=== PATIENT | female | born 2000 | race Hispanic/Latino ===

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

== ENCOUNTER 2023-03-01 00:29 | Observation (INO) | payer MEDICAID ==
[~2023-03-01] VITALS: Ht 154.9 cm; Wt 76.6 kg
[2023-03-01 00:31] VITALS: BP 106/66
[2023-03-01 01:12] LABS: APPEARANCE,URINE CLEAR (CLEAR); BILIRUBIN,URINE NEGATIVE (NEGATIVE); COLOR,URINE LIGHT-YELLOW (YELLOW); GLUCOSE, URINE (UA) NEGATIVE (NEGATIVE); KETONES,URINE NEGATIVE (NEGATIVE); LEUKOCYTE ESTERASE ,URINE 250 Leu/uL (NEGATIVE); NITRATE,URINE NEGATIVE (NEGATIVE); OCCULT BLOOD,URINE NEGATIVE (NEGATIVE); PH,URINE 6.5 (5.0-8.0); PROTEIN,URINE NEGATIVE (NEGATIVE); UROBILINOGEN,URINE 0.2 mg/dL (0.2-1.0)
[2023-03-01 01:19] LABS: AMPHET/METH SCREEN,URINE NEGATIVE (NEGATIVE); BARBITURATE SCREEN, URINE NEGATIVE (NEGATIVE); BENZODIAZEPINES SCREEN,URINE NEGATIVE (NEGATIVE); CANNABINOID SCREEN,URINE NEGATIVE (NEGATIVE); COCAINE SCREEN,URINE NEGATIVE (NEGATIVE); OPIATE SCREEN,URINE NEGATIVE (NEGATIVE); PHENCYCLIDINE SCREEN,URINE NEGATIVE (NEGATIVE)
[2023-03-01 01:25] LABS: MUCUS,URINE RARE LPF (None Seen); SQUAMOUS EPITHELIAL CELL,UR RARE /HPF (0-2); WBC,URINE 26-50 /HPF (0-1)
[2023-03-01] MEDS ORDERED: ACETAMINOPHEN 500 MG TABLET PO ONE (01:30)
[2023-03-01] MEDS ORDERED: LACTATED RINGERS 1000ML IV SCH (01:30)
== END 2023-03-01 02:55 | disposition home or self-care (01) ==
LOC: EDH 00:29 → LDH 00:30
PROVIDERS: ADMIT Obstetrics & Gynecology; ATTEND Obstetrics & Gynecology
DX: O26.892 Other specified pregnancy related conditions, second trimester (principal); R10.30 Lower abdominal pain, unspecified; Z3A.23 23 weeks gestation of pregnancy
CPT/HCPCS: 96360; 80305; 87088; 81001; G0378 ×2; G0379; J7120

== ENCOUNTER 2023-05-23 02:37 | Observation (INO) | payer MEDICAID ==
[~2023-05-23] VITALS: Ht 154.9 cm; Wt 81.6 kg
[2023-05-23 02:38] VITALS: BP 117/62; PULSE 76; RESP 20
[2023-05-23] MEDS: LACTATED RINGERS 1000ML IV SCH ×2 (03:10→03:42)
[2023-05-23 03:19] LABS: APPEARANCE,URINE CLEAR (CLEAR); BILIRUBIN,URINE NEGATIVE (NEGATIVE); COLOR,URINE LIGHT-YELLOW (YELLOW); GLUCOSE, URINE (UA) NEGATIVE (NEGATIVE); KETONES,URINE NEGATIVE (NEGATIVE); LEUKOCYTE ESTERASE ,URINE 500 Leu/uL (NEGATIVE); NITRATE,URINE NEGATIVE (NEGATIVE); OCCULT BLOOD,URINE NEGATIVE (NEGATIVE); PROTEIN,URINE NEGATIVE (NEGATIVE); UROBILINOGEN,URINE 0.2 mg/dL (0.2-1.0)
[2023-05-23 03:22] LABS: ADD UA MICROSCOPIC YES
[2023-05-23 03:23] LABS: BACTERIA,URINE RARE /HPF (None Seen); MUCUS,URINE RARE LPF (None Seen); SQUAMOUS EPITHELIAL CELL,UR RARE /HPF (0-2); WBC,URINE 26-50 /HPF (0-1)
== END 2023-05-23 04:30 | disposition home or self-care (01) ==
LOC: EDH 02:37 → LDH 02:38
PROVIDERS: ADMIT Obstetrics & Gynecology; ATTEND Obstetrics & Gynecology
DX: O62.9 Abnormality of forces of labor, unspecified (principal); Z3A.35 35 weeks gestation of pregnancy
CPT/HCPCS: 59025; 96360; 96361; 87088; 81001; G0378 ×2; G0379; J7120

== ENCOUNTER 2023-06-05 03:12 | Emergency (ER) | payer MEDICAID ==
[~2023-06-05] VITALS: Ht 154.9 cm; Wt 79.8 kg
[~2023-06-05 03:12] MED LIST: IBUP-2077 PO; PREN-196 PO
[2023-06-05] MEDS ORDERED: METOCLOPRAMIDE 10 MG/2 ML VIAL IVP ONE (04:00)
[2023-06-05] MEDS ORDERED: KETOROLAC 30MG VIAL (30MG/ML) IVP ONE (04:00)
[2023-06-05] MEDS ORDERED: DiphenhydrAMINE HCL 50 MG/ML VIAL IV ONE (04:00)
[2023-06-05] MEDS ORDERED: IBUP-1493 PO (06:40)
[2023-06-05 06:59] VITALS: BP 111/58; PULSE 76; RESP 18; O2SAT 97
== END 2023-06-05 07:06 | disposition home or self-care (01) ==
LOC: EDH 03:12
DX: G43.909 Migraine, unspecified, not intractable, without status migrainosus (principal); Z88.0 Allergy status to penicillin
CPT/HCPCS: 99285; 96374; 70450; 96375; J1200; J1885; J2765

== ENCOUNTER 2024-05-20 10:01 | Emergency (ER) | payer MEDICAID ==
[~2024-05-20] VITALS: Ht 154.9 cm; Wt 52.6 kg
[~2024-05-20 10:01] MED LIST changes: +IBUP-1493 PO
[2024-05-20 11:15] LABS: BASOPHILS # (AUTO) 0.02 K/uL (0.00-0.20); BASOPHILS % (AUTO) 0.3 % (0.0-5.0); EOSINOPHILS # (AUTO) 0.04 K/uL (0.00-0.70); EOSINOPHILS % (AUTO) 0.5 % (0.0-8.0); HEMATOCRIT 34.9 % (36-48); IMMATURE GRANULOCYTE ABSOLUTE 0.01 K/uL (0-1); LYMPHOCYTES # (AUTO) 2.7 K/uL (1.0-4.8); LYMPHOCYTES % (AUTO) 34.7 % (21.0-51.0); MEAN CORPUSCULAR HEMOGLOBIN 26.7 pg (27.0-33.0); MONOCYTES # (AUTO) 0.6 K/uL (0.1-1.0); MONOCYTES % (AUTO) 7.9 % (3.0-13.0); NEUTROPHILS # (AUTO) 4.4 K/uL (1.8-7.7); NEUTROPHILS % (AUTO) 56.5 % (40.0-77.0); PLATELET COUNT (AUTO) 311 K/uL (130-400); RED BLOOD CELL COUNT(AUTO) 4.31 MIL/uL (4.00-5.50); RED CELL DISTRIBUTION WIDTH 13.9 % (11.0-15.5); WHITE BLOOD COUNT (AUTO) 7.9 K/uL (4.8-10.8)
[2024-05-20 11:19] LABS: CREATININE 0.6 mg/dL (0.5-1.0); POTASSIUM 3.6 mmol/L (3.5-5.1)
[2024-05-20 12:58] LABS: APPEARANCE,URINE TURBID (CLEAR); BILIRUBIN,URINE NEGATIVE (NEGATIVE); COLOR,URINE RED (YELLOW); GLUCOSE, URINE (UA) NEGATIVE (NEGATIVE); KETONES,URINE NEGATIVE (NEGATIVE); LEUKOCYTE ESTERASE ,URINE NEGATIVE Leu/uL (NEGATIVE); NITRATE,URINE NEGATIVE (NEGATIVE); OCCULT BLOOD,URINE LARGE (NEGATIVE); PROTEIN,URINE 30 mg/dL (NEGATIVE); UROBILINOGEN,URINE 0.2 mg/dL (0.2-1.0)
[2024-05-20 13:02] LABS: ADD UA MICROSCOPIC YES
[2024-05-20 13:10] LABS: BACTERIA,URINE Rare /HPF (None Seen); RBC,URINE TNTC /HPF (0-1)
[2024-05-20 13:11] VITALS: BP 118/75; PULSE 76; RESP 16; O2SAT 99
[2024-05-20 13:11] LABS: MUCUS,URINE Few LPF (None Seen); SQUAMOUS EPITHELIAL CELL,UR Rare /HPF (0-2)
== END 2024-05-20 13:13 | disposition home or self-care (01) ==
LOC: EDH 10:01
DX: O20.0 Threatened abortion (principal); O26.891 Other specified pregnancy related conditions, first trimester; R10.2 Pelvic and perineal pain; J45.909 Unspecified asthma, uncomplicated; Z3A.08 8 weeks gestation of pregnancy
CPT/HCPCS: 36415; 76801; 80048; 81001; 84702; 85025; 87086

== ENCOUNTER 2024-05-21 20:56 | Emergency (ER) | payer MEDICAID ==
[~2024-05-21] VITALS: Ht 154.9 cm; Wt 72.6 kg
[2024-05-21 22:21] LABS: BASOPHILS # (AUTO) 0.02 K/uL (0.00-0.20); BASOPHILS % (AUTO) 0.3 % (0.0-5.0); EOSINOPHILS # (AUTO) 0.06 K/uL (0.00-0.70); EOSINOPHILS % (AUTO) 0.8 % (0.0-8.0); HEMATOCRIT 34.6 % (36-48); IMMATURE GRANULOCYTE ABSOLUTE 0.02 K/uL (0-1); LYMPHOCYTES % (AUTO) 40.4 % (21.0-51.0); MEAN CORPUSCULAR HGB CONC 33.2 g/dL (32.0-36.0); MEAN CORPUSCULAR VOLUME 81.2 fL (79-99); MONOCYTES # (AUTO) 0.5 K/uL (0.1-1.0); MONOCYTES % (AUTO) 6.7 % (3.0-13.0); NEUTROPHILS # (AUTO) 3.8 K/uL (1.8-7.7); NEUTROPHILS % (AUTO) 51.5 % (40.0-77.0); PLATELET COUNT (AUTO) 323 K/uL (130-400); RED BLOOD CELL COUNT(AUTO) 4.26 MIL/uL (4.00-5.50); RED CELL DISTRIBUTION WIDTH 14.1 % (11.0-15.5); WHITE BLOOD COUNT (AUTO) 7.4 K/uL (4.8-10.8)
[2024-05-21 22:35] LABS: APPEARANCE,URINE CLEAR (CLEAR); BILIRUBIN,URINE NEGATIVE (NEGATIVE); COLOR,URINE COLORLESS (YELLOW); GLUCOSE, URINE (UA) NEGATIVE (NEGATIVE); KETONES,URINE NEGATIVE (NEGATIVE); LEUKOCYTE ESTERASE ,URINE NEGATIVE Leu/uL (NEGATIVE); NITRATE,URINE NEGATIVE (NEGATIVE); OCCULT BLOOD,URINE MODERATE (NEGATIVE); PH,URINE 7.5 (5.0-8.0); PROTEIN,URINE NEGATIVE (NEGATIVE); UROBILINOGEN,URINE 0.2 mg/dL (0.2-1.0)
[2024-05-21 22:57] LABS: ADD UA MICROSCOPIC YES
[2024-05-21 22:58] LABS: BACTERIA,URINE FEW /HPF (None Seen); MUCUS,URINE RARE LPF (None Seen); RBC,URINE 51-100 /HPF (0-1); SQUAMOUS EPITHELIAL CELL,UR RARE /HPF (0-2)
[2024-05-21 23:11] LABS: ALBUMIN 3.6 g/dL (3.5-5.0); BILIRUBIN,TOTAL 0.2 mg/dL (0.2-1.0); CREATININE 0.7 mg/dL (0.5-1.0); POTASSIUM 3.9 mmol/L (3.5-5.1); TOTAL PROTEIN, SERUM 7.3 g/dL (6.0-8.3)
[2024-05-21 23:55] VITALS: BP 102/55; PULSE 72; RESP 18; O2SAT 98
== END 2024-05-21 23:55 | disposition home or self-care (01) ==
LOC: EDH 20:56
DX: O03.9 Complete or unspecified spontaneous abortion without complication (principal); O26.891 Other specified pregnancy related conditions, first trimester; R10.2 Pelvic and perineal pain; F41.9 Anxiety disorder, unspecified; J45.909 Unspecified asthma, uncomplicated; F32.A Depression, unspecified; Z88.0 Allergy status to penicillin; Z79.899 Other long term (current) drug therapy
CPT/HCPCS: 36415; 76801; 80053; 81001; 84702; 85025

== ENCOUNTER 2025-01-02 00:15 | Emergency (ER) | payer MEDICAID ==
[~2025-01-02] VITALS: Ht 154.9 cm; Wt 78.5 kg
[2025-01-02 00:45] LABS: APPEARANCE,URINE CLEAR (CLEAR); BILIRUBIN,URINE NEGATIVE (NEGATIVE); COLOR,URINE YELLOW (YELLOW); GLUCOSE, URINE (UA) NEGATIVE (NEGATIVE); KETONES,URINE 20 mg/dL (NEGATIVE); LEUKOCYTE ESTERASE ,URINE 25 Leu/uL (NEGATIVE); NITRATE,URINE NEGATIVE (NEGATIVE); OCCULT BLOOD,URINE NEGATIVE (NEGATIVE); PH,URINE 6.5 (5.0-8.0); PROTEIN,URINE 10 mg/dL (NEGATIVE); UROBILINOGEN,URINE 0.2 mg/dL (0.2-1.0)
[2025-01-02 00:46] LABS: ADD UA MICROSCOPIC YES
[2025-01-02 00:48] LABS: BACTERIA,URINE RARE /HPF (None Seen); MUCUS,URINE RARE LPF (None Seen); SQUAMOUS EPITHELIAL CELL,UR FEW /HPF (0-2)
[2025-01-02 00:58] LABS: BASOPHILS # (AUTO) 0.02 K/uL (0.00-0.20); BASOPHILS % (AUTO) 0.2 % (0.0-5.0); EOSINOPHILS # (AUTO) 0.01 K/uL (0.00-0.70); EOSINOPHILS % (AUTO) 0.1 % (0.0-8.0); HEMATOCRIT 34.8 % (36-48); IMMATURE GRANULOCYTE ABSOLUTE 0.02 K/uL (0-1); LYMPHOCYTES # (AUTO) 0.7 K/uL (1.0-4.8); LYMPHOCYTES % (AUTO) 9.1 % (21.0-51.0); MEAN CORPUSCULAR HEMOGLOBIN 27.5 pg (27.0-33.0); MEAN CORPUSCULAR HGB CONC 33.6 g/dL (32.0-36.0); MEAN CORPUSCULAR VOLUME 81.7 fL (79-99); MONOCYTES # (AUTO) 0.9 K/uL (0.1-1.0); MONOCYTES % (AUTO) 10.8 % (3.0-13.0); NEUTROPHILS # (AUTO) 6.4 K/uL (1.8-7.7); NEUTROPHILS % (AUTO) 79.6 % (40.0-77.0); PLATELET COUNT (AUTO) 236 K/uL (130-400); RED BLOOD CELL COUNT(AUTO) 4.26 MIL/uL (4.00-5.50); RED CELL DISTRIBUTION WIDTH 14.3 % (11.0-15.5)
[2025-01-02 01:18] LABS: CREATININE 0.8 mg/dL (0.5-1.0); POTASSIUM 3.3 mmol/L (3.5-5.1)
[2025-01-02 01:23] LABS: SARS-CoV-2, RNA, NAAT NEGATIVE SARS CoV-2 (NEGATIVE)
[2025-01-02] MEDS: acetaMINOPHEN 500 MG TABLET PO ONE (01:23)
[2025-01-02] MEDS: 0.9%NACL 1000ML 1,434 ML IV ONE (01:23)
[2025-01-02 01:24] LABS: RAPID GROUP A STREP negative (NEGATIVE)
[2025-01-02] MEDS: acetaMINOPHEN 500 MG TABLET ONE (01:24)
[2025-01-02] MEDS: FENTanyl CITRate PF 50 MCG/1 ML 2ML VIAL IVP ONE (01:30)
[2025-01-02 01:31] LABS: INFLUENZA TYPE B Negative For Type B (NEGATIVE)
--- NOTE | 2025-01-02 01:33 | ERN ---
General Chief Complaint: Abdominal Pain Stated Complaint: C/O LOWER ABD PAIN W/BACK PAIN; 13 WKS Time Seen by MD: 00:33 Source: patient History of Present Illness Initial Comments Patient is a 24 year female 14 weeks who had bilateral lower abdominal pain and was seen at an outside hospital earlier today where she was given a diagnosis of a UTI. She left because the IV was not functioning she could not get fluid and she does not know if she received any antibiotics. She comes here tachycardic warm with worsening bilateral lower abdominal pain. Resting she states that she did not experience any burning itching when she urinates and her symptoms are not which she associates with a urinary tract infection. Sepsis alert was called on the patient Timing/Duration: 24 hours Severity: severe Allergies: Coded Allergies: Penicillins (Unverified Allergy, Unknown, 03/01/23) Home Meds Active Scripts Ibuprofen (Motrin/Advil) 800 Mg Tab, 800 MG PO TID, #30 TAB Prov:CARLOS LOUIS MD 06/05/23 Reported Medications Ibuprofen (Ibuprofen 800 mg Tab) 800 Mg Tab, 800 MG PO Q8H PRN for PAIN, #30 TAB 06/03/23 Vit No.124/Iron/FA ( Vitamin Tablet) 1 Each Tablet, 1 EACH PO DAILY, TAB 05/28/23 Past Medical History Past Medical History: Asthma Past Surgical History: Unknown Surgical History Other: LT OVARIAN CYST Family History Family History: Negative Social History Social History: Negative, Lives with family Female( History) LMP: Sep 27, 2024 : 4 Para: 1 Aborts: 2 ROS Dictation Patient states that she does not have any upper respiratory tract infection symptoms today or over the prior several days she has no nausea or vomiting no burning on urination no chest pain no shortness of breath moves all extremities able to ambulate no visual changes no mental status changes Constitutional: (+) fever, (+) malaise, (+) weakness, (+) other documentation IVF Sepsis Management IVF Sepsis Management BMI >30kg/m2?: Yes IVF calculated by IBW?: No Results Laboratory and Microbiology Lab and Micro Result Laboratory Tests Test 01/02/25 00:32 01/02/25 00:45 Urine Color YELLOW (YELLOW) Urine Appearance CLEAR (CLEAR) Urine pH 6.5 (5.0-8.0) Urine Specific [place] 1.029 (1.001-1.031) Urine Protein 10 mg/dL (NEGATIVE) H Urine Glucose (UA) NEGATIVE mg/dL (NEGATIVE) Urine Ketones 20 mg/dL (NEGATIVE) H Urine Occult Blood NEGATIVE (NEGATIVE) Urine Nitrate NEGATIVE (NEGATIVE) Urine Bilirubin NEGATIVE mg/dL (NEGATIVE) Urine Urobilinogen 0.2 mg/dL (0.2-1.0) Urine Leukocyte Esterase 25 Eric/uL (NEGATIVE) H Urine RBC 2-5 /HPF (0-1) H Urine WBC 2-5 /HPF (0-1) H Urine Squamous Epithelial Cells FEW /HPF (0-2) Urine Bacteria RARE /HPF (None Seen) White Blood Count 8.0 K/uL (4.8-10.8) Red Blood Count 4.26 MIL/uL (4.00-5.50) Hemoglobin 11.7 g/dL (12.0-16.0) L Hematocrit 34.8 % (36-48) L Mean Corpuscular Volume 81.7 fL (79-99) Mean Corpuscular Hemoglobin 27.5 pg (27.0-33.0) Mean Corpuscular Hemoglobin Concent 33.6 g/dL (32.0-36.0) Red Cell Distribution Width 14.3 % (11.0-15.5) Platelet Count 236 K/uL (130-400) Mean Platelet Volume 10.8 fL (7.5-10.5) H Immature Granulocyte % (Auto) 0.2 % (0-1) Neutrophils (%) (Auto) 79.6 % (40.0-77.0) H Lymphocytes (%) (Auto) 9.1 % (21.0-51.0) L Monocytes (%) (Auto) 10.8 % (3.0-13.0) Eosinophils (%) (Auto) 0.1 % (0.0-8.0) Basophils (%) (Auto) 0.2 % (0.0-5.0) Neutrophils # (Auto) 6.4 K/uL (1.8-7.7) Lymphocytes # (Auto) 0.7 K/uL (1.0-4.8) L Monocytes # (Auto) 0.9 K/uL (0.1-1.0) Eosinophils # (Auto) 0.01 K/uL (0.00-0.70) Basophils # (Auto) 0.02 K/uL (0.00-0.20) Absolute Immature Granulocyte (auto 0.02 K/uL (0-1) Nucleated Red Blood Cells 0.0 % (0.0-0.19) White Cell Morphology Comment CONSISTENT W/DIFF Sodium Level 135 mmol/L (136-145) L Potassium Level 3.3 mmol/L (3.5-5.1) L Chloride Level 100 mmol/L (101-111) L Carbon Dioxide Level 24 mmol/L (21-32) Blood Urea Nitrogen 5 mg/dL (7-18) L Creatinine 0.8 mg/dL (0.5-1.0) Glomerular Filtration Rate Calc 107 mL/min (>90) Random Glucose 137 mg/dL (70-105) H Lactic Acid Level 1.8 mmol/L (0.8-2.5) Total Calcium 8.8 mg/dL (8.5-10.1) Influenza Type A Antigen Positive For Type A Influenza Type B Antigen Negative For Type B SARS-CoV-2, RNA, NAAT NEGATIVE SARS CoV-2 Group A Streptococcus Rapid negative (NEGATIVE) MDM Despite patient's statement that she does not experience burning or itching well urinating, the most likely cause is a urinary tract infection. We will start with the sepsis protocol UA, urine culture, fluids, usual labs but will leave out the CK in the troponin. We will give a single dose of levofloxacin as pt is PCN allergic with swelling as the reaction. Other considerations could be ectopic with bleeding, maternal sepsis, lack of CVA tenderness suggests patient does not have pyelonephrosis, patient could also have chorioamnionitis-for which we will order a vaginal culture. The patient has a normal white blood cell count and her chemistry panel is normal. The urine did have some esterase activity but was nitrite negative and there were ketones present in it, suggesting dehydration. He transvaginal ultrasound shows a viable intrauterine with an estimated gestational age of about 13 weeks. Patient feels much better after the fluid boluses and has no abdominal pain and would like to go home. ED Course Orders Procedure Category Date Status Time Iv Insertion CPOE 01/02/25 Transmitted 00:33 Pulse Ox(Continuous) RT 01/02/25 Transmitted 00:33 Vital Signs Per CPOE 01/02/25 Transmitted Routine 00:33 12 Lead Ekg Tracing- EKG 01/02/25 Logged Technical 00:33 Cbc With Differential LAB 01/02/25 Complete 00:33 Blood Cult STEVIE 01/02/25 In Process 00:33 Urinalysis Profile LAB 01/02/25 Complete 00:33 Culture Urine STEVIE 01/02/25 In Process 00:33 Lactic Acid LAB 01/02/25 Complete 00:33 Basic Metabolic Panel LAB 01/02/25 Complete 00:33 Covid Rna Naat LAB 01/02/25 Complete 00:42 Influenza Type A & B, LAB 01/02/25 Complete Rapid 00:42 Rapid (Group A Strep) LAB 01/02/25 Complete 00:42 Acetaminophen 500mg PHA 01/02/25 Complete Tab (Tylenol 500mg T 01:30 Acetaminophen 500mg PHA 01/02/25 Complete Tab (Tylenol 500mg T 01:08 0.9%Nacl 1000ml (Ns PHA 01/02/25 In Process 1000ml) 01:30 Levofloxacin 750 PHA 01/02/25 In Process Mg/D5w 150 Ml 01:30 Fentanyl Citrate Pf PHA 01/02/25 Complete 0.05 Mg/Ml (Fentanyl 01:30 Us Ob <14 Weeks US 01/02/25 Taken 01:38 Current Medications Medications (Trade) Dose Ordered Sig/Wil Route PRN Reason Start Time Stop Time Status Last Admin Dose Admin Acetaminophen (TYLenol 500MG TAB) 500 mg STK-MED ONCE .ROUTE 01/02/25 01:08 01/02/25 01:08 DC Acetaminophen (TYLenol 500MG TAB) 1,000 mg ONCE ONCE PO 01/02/25 01:30 01/02/25 01:31 DC 01/02/25 01:23 Fentanyl Citrate (FENTanyl CITRate PF 50 MCG/ 1 ML 2ML VIAL) 100 mcg ONCE ONCE IVP 01/02/25 01:30 01/02/25 01:39 DC Levofloxacin/ Dextrose (LEvaquIN 750 MG/ D5W 150 ML) 750 mg Q24H IV 01/02/25 01:30 01/12/25 01:29 01/02/25 02:27 Sodium Chloride 1,434 ml @ 478 mls/hr ONCE ONCE IV 01/02/25 01:30 01/02/25 04:29 01/02/25 01:23 Vital Signs Date Time Temp Pulse Resp B/P (MAP) Pulse Ox O2 Delivery O2 Flow Rate FiO2 01/02/25 03:11 100.6 110 16 106/59 98 Room Air* 0 21 01/02/25 01:35 102.6 135 18 99/54 98 Room Air* 0 21 01/02/25 01:23 103.5 01/02/25 00:35 103.5 144 20 90/53 97 Room Air* 0 01/02/25 00:16 103.6 142 20 110/58 98 Room Air DX & DISP Disposition: Discharge Departure Impression: Primary Impression: Dehydration Additional Impression: 13 weeks gestation of Condition: Stable Referrals: NONE (PCP) TONNY VOGT MD Jan 02, 2025 01:33
[2025-01-02 01:36] LABS: WBC MORPHOLOGY CONSISTENT W/DIFF
[2025-01-02 01:57] LABS: INFLUENZA TYPE A Positive For Type A (NEGATIVE)
[2025-01-02] MEDS: levoFLOXacin 750 MG/D5W 150ML BAG IV SCH (02:27)
[2025-01-02 04:51] VITALS: BP 118/58; PULSE 99; RESP 16; TEMP 99.8; O2SAT 98
--- NOTE | 2025-01-02 07:36 | EKG ---
[facility] Test Date: 2025-01-02 Test Time: 01:00:03 Pat Name: JESSENIA MCKEON Department: [facility] Room: Gender: F Certified Midwife: [id number] : 2000 Requested By: TONNY VOGT Order Number: [id number] Reading MD: Maximus Starkey Measurements Intervals [place] Rate: 125 P: 66 CA: 164 QRS: 23 QRSD: 93 T: 25 QT: 284 QTc: 410 Interpretive Statements Sinus tachycardia Low voltage, precordial leads Nonspecific T abnormalities, anterior leads No previous ECG available for comparison Electronically Signed On 01-03-2025 14:46:16 CDT by Maximus Starkey Please click the below link to view image of tracing.
--- NOTE | 2025-01-02 10:36 | HMCIMG ---
ULTRASOUND OF THE PELVIS ULTRASOUND ABD VASCULAR LIMITED INDICATION: Pelvic pain COMPARISONS: None TECHNIQUE: Transabdominal real-time sonographic images were acquired earlier, and subsequently made available for review. FINDINGS: The uterus measures 14.9 x 6.0 x 11.7 cm. The uterus is normal in echotexture and contour. Single live intrauterine gestation corresponds to sonographic gestational age of 13 weeks 0 days based on crown-rump length of 6.9 cm. No abnormal subchorionic hypoechoic area demonstrated. heart rate = 167 BPM. The right ovary was not well-demonstrated. The left ovary measures 3.3 x 1.6 x 2.4 cm. The left ovary is normal in size, shape and echogenicity. No left adnexal masses demonstrated. Color Doppler flow is normal throughout the left ovary. Spectral Doppler analysis demonstrates a normal waveform pattern. No free pelvic fluid demonstrated. IMPRESSION: 1. Single live intrauterine gestation corresponding to sonographic gestational age of 13 weeks 0 days based on crown-rump length, and with heart rate = 167 BPM. 2. No evidence for subchorionic hemorrhage. 3. ANA = 07/10/2025
== END 2025-01-02 04:53 | disposition home or self-care (01) ==
LOC: EDH 00:15
DX: O26.891 Other specified pregnancy related conditions, first trimester (principal); E86.0 Dehydration; J45.909 Unspecified asthma, uncomplicated; Z3A.14 14 weeks gestation of pregnancy; Z20.822 Contact with and (suspected) exposure to COVID-19; Z79.899 Other long term (current) drug therapy
CPT/HCPCS: 99285; 96365; 76801; 87635; 96366; 96375; 80048; 85025; 87040 ×2; 87086 ×2; 87186; 87880; 87804 ×2; 83605; 81001; 36415; 93005; J1956; J7030

== ENCOUNTER 2025-02-10 23:41 | Emergency (ER) | payer MEDICAID ==
[~2025-02-10] VITALS: Ht 154.9 cm; Wt 78.9 kg
--- NOTE | 2025-02-11 00:20 | ERN ---
General Chief Complaint: Vaginal Problems/Bleeding Stated Complaint: VAGINAL PAIN Time Seen by MD: 23:48 Source: patient History of Present Illness Initial Comments Patient is a 24-year-old female who is 19 weeks and comes in because she has increased cramping and pain in her bilateral groin she also feels pressure when she tries to void. Otherwise she states she has normal discharge from her vagina and she is not sexually active. No constitutional symptoms fevers chills nausea diarrhea. Allergies: Coded Allergies: Penicillins (Unverified Allergy, Unknown, 03/01/23) Home Meds Active Scripts Ibuprofen (Motrin/Advil) 800 Mg Tab, 800 MG PO TID, #30 TAB Prov:CARLOS LOUIS MD 06/05/23 Reported Medications Ibuprofen (Ibuprofen 800 mg Tab) 800 Mg Tab, 800 MG PO Q8H PRN for PAIN, #30 TAB 06/03/23 Vit No.124/Iron/FA ( Vitamin Tablet) 1 Each Tablet, 1 EACH PO DAILY, TAB 05/28/23 Past Medical History Past Medical History: No Pertinent History Past Surgical History: None Surgical History Other: LT OVARIAN CYST Family History Family History: Negative Social History Social History: Negative, Lives with family Female( History) LMP: Sep 27, 2024 : 4 Para: 1 Aborts: 2 Constitutional: (-) chills, (-) diaphoresis, (-) fever, (-) malaise, (-) weakness, (-) other documentation EENTM: (-) eye pain, (-) blurred vision, (-) tearing, (-) double vision, (-) ea r pain, (-) ear discharge, (-) nose pain, (-) nose congestion, (-) throat pain, (-) Throat swelling, (-) mouth pain, (-) tooth pain, (-) mouth swelling, (-) other documentation Respiratory: (-) cough, (-) orthopnea, (-) short of breath, (-) stridor, (-) wheezing, (-) other documentation Cardiovascular: (-) chest pain, (-) edema, (-) palpitations, (-) syncope, (-) dyspnea on exertion, (-) other documentation Gastrointestinal/Abdominal: (-) nausea, (-) vomiting, (-) diarrhea, (-) abdominal pain, (-) abdominal distention, (-) constipation, (-) rectal bleeding, (-) dark stool/melena, (-) other documentation Genitourinary: (-) vaginal discharge, (-) vaginal bleeding, (-) dysuria, (-) frequency, (-) hematuria, (-) pain, (-) other documentation Musculoskeletal: (-) Neck pain, (-) back pain, (-) Flank Pain, (-) joint pain, (-) joint swelling, (-) muscle pain, (-) muscle stiffness, (-) gout, (-) other documentation Skin: (-) laceration, (-) contusion, (-) abrasion, (-) abscess, (-) rash, (-) change in color, (-) change in hair, (-) change in nails, (-) diaphoresis, (-) dryness, (-) other documentation Physical Exam General Appearance: (+) no apparent distress Orientation: (+) alert, (+) oriented x 3 Head/Face Trauma: No Eye: bilateral eye normal inspection, bilateral eye PERRL, bilateral eye EOMI Ear, Nose, Throat: (+) hearing grossly normal, (+) normal ENT inspection, (+) moist mucous membraine Neck: (+) normal inspection, (+) supple, (+) full range of motion Respiratory: (+) chest non-tender, (+) lungs clear, (+) well ventilated Heart: (+) regular, (+) no gallop Vascular: (+) no edema, (+) normal peripheral pulse Gastrointestinal: (+) soft, (+) non-tender, (+) bowel sound present Results Laboratory and Microbiology Lab and Micro Result Laboratory Tests Test 02/11/25 00:16 02/11/25 00:19 White Blood Count 8.3 K/uL (4.8-10.8) Red Blood Count 3.76 MIL/uL (4.00-5.50) L Hemoglobin 10.5 g/dL (12.0-16.0) L Hematocrit 31.9 % (36-48) L Mean Corpuscular Volume 84.8 fL (79-99) Mean Corpuscular Hemoglobin 27.9 pg (27.0-33.0) Mean Corpuscular Hemoglobin Concent 32.9 g/dL (32.0-36.0) Red Cell Distribution Width 14.4 % (11.0-15.5) Platelet Count 274 K/uL (130-400) Mean Platelet Volume 11.3 fL (7.5-10.5) H Immature Granulocyte % (Auto) 0.4 % (0-1) Neutrophils (%) (Auto) 57.7 % (40.0-77.0) Lymphocytes (%) (Auto) 32.7 % (21.0-51.0) Monocytes (%) (Auto) 8.4 % (3.0-13.0) Eosinophils (%) (Auto) 0.7 % (0.0-8.0) Basophils (%) (Auto) 0.1 % (0.0-5.0) Neutrophils # (Auto) 4.8 K/uL (1.8-7.7) Lymphocytes # (Auto) 2.7 K/uL (1.0-4.8) Monocytes # (Auto) 0.7 K/uL (0.1-1.0) Eosinophils # (Auto) 0.06 K/uL (0.00-0.70) Basophils # (Auto) 0.01 K/uL (0.00-0.20) Absolute Immature Granulocyte (auto 0.03 K/uL (0-1) Nucleated Red Blood Cells 0.0 % (0.0-0.19) Sodium Level 140 mmol/L (136-145) Potassium Level 3.7 mmol/L (3.5-5.1) Chloride Level 106 mmol/L (101-111) Carbon Dioxide Level 24 mmol/L (21-32) Blood Urea Nitrogen 7 mg/dL (7-18) Creatinine 0.6 mg/dL (0.5-1.0) Glomerular Filtration Rate Calc 130 mL/min (>90) Random Glucose 105 mg/dL (70-105) Total Calcium 9.0 mg/dL (8.5-10.1) Urine Color LIGHT-YELLOW (YELLOW) Urine Appearance CLEAR (CLEAR) Urine pH 6.5 (5.0-8.0) Urine Specific [place] 1.023 (1.001-1.031) Urine Protein NEGATIVE mg/dL (NEGATIVE) Urine Glucose (UA) NEGATIVE mg/dL (NEGATIVE) Urine Ketones NEGATIVE mg/dL (NEGATIVE) Urine Occult Blood NEGATIVE (NEGATIVE) Urine Nitrate NEGATIVE (NEGATIVE) Urine Bilirubin NEGATIVE mg/dL (NEGATIVE) Urine Urobilinogen 0.2 mg/dL (0.2-1.0) Urine Leukocyte Esterase NEGATIVE Eric/uL Urine RBC None /HPF (0-1) Urine WBC 2-5 /HPF (0-1) H Urine Squamous Epithelial Cells RARE /HPF (0-2) Urine Amorphous Crystals (Auto) RARE /LPF (None Seen) Urine Bacteria None /HPF (None Seen) MDM Cause of patient's symptoms could be as simple as a urinary tract infection, or dehydration, or a problem with her . I will start with a CBC chemistry panel urine analysis in a transvaginal ultrasound. Patient's transvaginal ultrasound showed 18 week 3-day-old fetus heart rate 137 no placenta previa. Patient's urine has no signs of infection chemistry and blood work was also normal. I discussed these results with the patient she was glad to know she is not having a miscarriage. It is possible patient's pain is round ligament pain although it does not have the classic description. In either case baby and mother are doing fine and she can be discharged from the ED. ED Course Orders Procedure Category Date Status Time Urinalysis Profile LAB 02/11/25 Complete 00:10 Cbc With Differential LAB 02/11/25 Complete 00:10 Basic Metabolic Panel LAB 02/11/25 Complete 00:20 Us Ob >14 Weeks US 02/11/25 Taken 00:10 Vital Signs Date Time Temp Pulse Resp B/P (MAP) Pulse Ox O2 Delivery O2 Flow Rate FiO2 02/10/25 23:44 98.4 90 18 106/68 98 Room Air* 0 21 02/10/25 23:44 98.1 92 18 106/68 99 Room Air 0 DX & DISP Disposition: Discharge Departure Impression: Primary Impression: Round ligament pain Condition: Stable Referrals: SELF,REFERRAL (PCP) TONNY VOGT MD February 11, 2025 00:19
[2025-02-11 00:43] LABS: APPEARANCE,URINE CLEAR (CLEAR); BILIRUBIN,URINE NEGATIVE (NEGATIVE); COLOR,URINE LIGHT-YELLOW (YELLOW); GLUCOSE, URINE (UA) NEGATIVE (NEGATIVE); KETONES,URINE NEGATIVE (NEGATIVE); LEUKOCYTE ESTERASE ,URINE NEGATIVE Leu/uL (NEGATIVE); NITRATE,URINE NEGATIVE (NEGATIVE); OCCULT BLOOD,URINE NEGATIVE (NEGATIVE); PH,URINE 6.5 (5.0-8.0); PROTEIN,URINE NEGATIVE (NEGATIVE); UROBILINOGEN,URINE 0.2 mg/dL (0.2-1.0)
[2025-02-11 00:46] LABS: ADD UA MICROSCOPIC YES
[2025-02-11 00:47] LABS: MUCUS,URINE RARE LPF (None Seen); SQUAMOUS EPITHELIAL CELL,UR RARE /HPF (0-2)
[2025-02-11 00:48] LABS: CREATININE 0.6 mg/dL (0.5-1.0); POTASSIUM 3.7 mmol/L (3.5-5.1)
[2025-02-11 01:00] LABS: BASOPHILS # (AUTO) 0.01 K/uL (0.00-0.20); BASOPHILS % (AUTO) 0.1 % (0.0-5.0); EOSINOPHILS # (AUTO) 0.06 K/uL (0.00-0.70); EOSINOPHILS % (AUTO) 0.7 % (0.0-8.0); HEMATOCRIT 31.9 % (36-48); IMMATURE GRANULOCYTE ABSOLUTE 0.03 K/uL (0-1); LYMPHOCYTES # (AUTO) 2.7 K/uL (1.0-4.8); LYMPHOCYTES % (AUTO) 32.7 % (21.0-51.0); MEAN CORPUSCULAR HEMOGLOBIN 27.9 pg (27.0-33.0); MEAN CORPUSCULAR HGB CONC 32.9 g/dL (32.0-36.0); MEAN CORPUSCULAR VOLUME 84.8 fL (79-99); MONOCYTES # (AUTO) 0.7 K/uL (0.1-1.0); MONOCYTES % (AUTO) 8.4 % (3.0-13.0); NEUTROPHILS # (AUTO) 4.8 K/uL (1.8-7.7); NEUTROPHILS % (AUTO) 57.7 % (40.0-77.0); PLATELET COUNT (AUTO) 274 K/uL (130-400); RED BLOOD CELL COUNT(AUTO) 3.76 MIL/uL (4.00-5.50); RED CELL DISTRIBUTION WIDTH 14.4 % (11.0-15.5); WHITE BLOOD COUNT (AUTO) 8.3 K/uL (4.8-10.8)
[2025-02-11 01:12] VITALS: BP 112/74; PULSE 84; RESP 16; TEMP 98.4; O2SAT 99
--- NOTE | 2025-02-11 08:39 | HMCIMG ---
US OB >14 WEEKS HISTORY: 18 weeks , pain pressure. FINDINGS: Single fetus in breech presentation. heart rate: 137 bpm. Amniotic fluid index: 12.4 cm- normal. Placenta: Anterior and grade 2. No gross structural abnormality noted. stomach, kidneys and urinary bladder, spine, cord insertion, three-vessel cord, and a four-chamber view of the heart are all present and appear normal. brain not fully evaluated. BIOMETRIC DATA: Biparietal diameter: 4.14 cm, consistent with gestational age of 18 weeks 4 days. Head circumference: 15.54 cm, consistent with gestational age of 18 weeks 3 days. Abdominal circumference: 17.46 cm, consistent with gestational age of 18 weeks 1 day. Femoral length: 2.77 cm, consistent with gestational age of 18 weeks 4 days. weight: 233 grams. IMPRESSION: Single intrauterine of 18 weeks 3 days.
== END 2025-02-11 01:20 | disposition home or self-care (01) ==
LOC: EDH 23:41
DX: O26.892 Other specified pregnancy related conditions, second trimester (principal); R10.2 Pelvic and perineal pain; R10.31 Right lower quadrant pain; R10.32 Left lower quadrant pain; Z3A.18 18 weeks gestation of pregnancy; Z88.0 Allergy status to penicillin; Z79.1 Long term (current) use of non-steroidal anti-inflammatories (NSAID); Z79.899 Other long term (current) drug therapy
CPT/HCPCS: 36415; 76805; 80048; 81001; 85025; 99284

== ENCOUNTER 2025-08-13 15:08 | Emergency (ER) | payer MEDICAID ==
[~2025-08-13] VITALS: Ht 152.4 cm; Wt 76.2 kg
[2025-08-13 15:42] LABS: APPEARANCE,URINE CLOUDY (CLEAR); GLUCOSE, URINE (UA) NEGATIVE (NEGATIVE); LEUKOCYTE ESTERASE ,URINE 500 Leu/uL (NEGATIVE); NITRATE,URINE NEGATIVE (NEGATIVE); OCCULT BLOOD,URINE +- (TRACE) (NEGATIVE)
[2025-08-13 15:45] LABS: ADD UA MICROSCOPIC YES
[2025-08-13 15:46] LABS: SQUAMOUS EPITHELIAL CELL,UR MANY /HPF (0-2)
[2025-08-13 15:47] LABS: IMMATURE GRANULOCYTE ABSOLUTE 0.04 K/uL (0-1); NUCLEATED RED BLOOD CELLS 0.0 % (0.0-0.19); PLATELET COUNT (AUTO) 276 K/uL (130-400); RED BLOOD CELL COUNT(AUTO) 4.79 MIL/uL (4.00-5.50); RED CELL DISTRIBUTION WIDTH 14.7 % (11.0-15.5); WHITE BLOOD COUNT (AUTO) 12.5 K/uL (4.8-10.8)
[2025-08-13] MEDS: 0.9%NACL 1000ML 2,286 ML IV ONE (15:54)
[2025-08-13 15:59] LABS: CREATININE 0.8 mg/dL (0.5-1.0); GLOMERULAR FILTR. RATE CALC 106.0 mL/min (>90); GLUCOSE,RANDOM 106.0 mg/dL (70-105); SODIUM SERUM 135.0 mmol/L (136-145); UREA NITROGEN, BLOOD 6.0 mg/dL (7-18)
[2025-08-13 16:04] LABS: CREATINE KINASE, TOTAL 98.0 U/L (21-232)
[2025-08-13 16:59] VITALS: TEMP 98.3
[2025-08-13 17:16] LABS: RAPID GROUP A STREP negative (NEGATIVE)
[2025-08-13 17:20] LABS: SARS-CoV-2, RNA, NAAT NEGATIVE SARS CoV-2 (NEGATIVE)
--- NOTE | 2025-08-13 17:21 | ERN ---
General Chief Complaint: Congestion Stated Complaint: FLU Time Seen by MD: 15:11 Source: patient History of Present Illness Initial Comments Patient is a 25-year-old female coming in complaining of fever or chills no body aches. Per patient this has been ongoing for several days. She states that she feels as if she might have the flu. Allergies: Coded Allergies: Penicillins (Unverified Allergy, Unknown, 03/01/23) Home Meds Active Scripts Ibuprofen (Motrin/Advil) 800 Mg Tab, 800 MG PO TID, #30 TAB Prov:CARLOS LOUIS MD 06/05/23 Reported Medications Ibuprofen (Ibuprofen 800 mg Tab) 800 Mg Tab, 800 MG PO Q8H PRN for PAIN, #30 TAB 06/03/23 Vit No.124/Iron/FA ( Vitamin Tablet) 1 Each Tablet, 1 EACH PO DAILY, TAB 05/28/23 Past Medical History Past Medical History: Anxiety, Asthma, Depression Past Surgical History: Other, None Surgical History Other: OVARIAN CYST REMOVAL Family History Family History: Negative Social History Social History: Negative, Lives with family Female( History) LMP: Aug 03, 2025 : 4 Para: 2 Aborts: 2 ROS Dictation CONSTITUTIONAL: No chills, no fever, no weakness, no diaphoresis, no malaise. HEAD/FACE: No signs of trauma. EENT: No eye pain, no blurred vision, no tearing, no double vision, no ear pain, no ear discharge, no nose pain, no nasal congestion, no throat pain, no throat swelling, no mouth pain. RESPIRATORY: No cough, no orthopnea, no SOB, no stridor, no wheezing. CARDIOVASCULAR: No chest pain, no edema, no palpitations, no syncope. GASTROINTESTINAL/ABDOMINAL: No abdominal pain, no constipation, no diarrhea, no nausea, no vomiting. GENITOURINARY: No abnormal discharge, no dysuria, no frequent urination, no hematuria. No complaints of pain in the genitals. MUSCULOSKELETAL: No back pain, no gout, no joint pain, no joint swelling, no muscle pain, no muscle stiffness, no neck pain. INTEGUMENTARY: No change in color, no change in hair/nails, no dryness, no lesion, no lumps, no rash. NEUROLOGICAL/PSYCH: No anxiety, not depressed, no emotional problem, no he adache, no numbness, no pre-existing deficit, no history of seizures, no tremors, no weakness. HEMATOLOGIC/LYMPHATIC: Not anemic, no history of blood clots, no apparent bleeding, no bruising, glands not swollen. All Systems Negative, Except as Noted. Results Laboratory and Microbiology Lab and Micro Result Laboratory Tests Test 08/13/25 15:15 08/13/25 15:31 08/13/25 15:40 Influenza Type A Antigen Negative For Type A Influenza Type B Antigen Negative For Type B SARS-CoV-2, RNA, NAAT NEGATIVE SARS CoV-2 Group A Streptococcus Rapid negative (NEGATIVE) Urine Color LIGHT-YELLOW (YELLOW) Urine Appearance CLOUDY (CLEAR) H Urine pH 7.5 (5.0-8.0) Urine Specific [place] 1.014 (1.001-1.031) Urine Protein NEGATIVE mg/dL (NEGATIVE) Urine Glucose (UA) NEGATIVE mg/dL (NEGATIVE) Urine Ketones NEGATIVE mg/dL (NEGATIVE) Urine Occult Blood +- (TRACE) (NEGATIVE) H Urine Nitrate NEGATIVE (NEGATIVE) Urine Bilirubin NEGATIVE mg/dL (NEGATIVE) Urine Urobilinogen 0.2 mg/dL (0.2-1.0) Urine Leukocyte Esterase 500 Eric/uL (NEGATIVE) H Urine RBC 2-5 /HPF (0-1) H Urine WBC 6-10 /HPF (0-1) H Urine Squamous Epithelial Cells MANY /HPF (0-2) Urine Bacteria RARE /HPF (None Seen) White Blood Count 12.5 K/uL (4.8-10.8) H Red Blood Count 4.79 MIL/uL (4.00-5.50) Hemoglobin 12.9 g/dL (12.0-16.0) Hematocrit 39.8 % (36-48) Mean Corpuscular Volume 83.1 fL (79-99) Mean Corpuscular Hemoglobin 26.9 pg (27.0-33.0) L Mean Corpuscular Hemoglobin Concent 32.4 g/dL (32.0-36.0) Red Cell Distribution Width 14.7 % (11.0-15.5) Platelet Count 276 K/uL (130-400) Mean Platelet Volume 10.1 fL (7.5-10.5) Immature Granulocyte % (Auto) 0.3 % (0-1) Neutrophils (%) (Auto) 76.3 % (40.0-77.0) Lymphocytes (%) (Auto) 17.1 % (21.0-51.0) L Monocytes (%) (Auto) 6.1 % (3.0-13.0) Eosinophils (%) (Auto) 0.0 % (0.0-8.0) Basophils (%) (Auto) 0.2 % (0.0-5.0) Neutrophils # (Auto) 9.6 K/uL (1.8-7.7) H Lymphocytes # (Auto) 2.2 K/uL (1.0-4.8) Monocytes # (Auto) 0.8 K/uL (0.1-1.0) Eosinophils # (Auto) 0.00 K/uL (0.00-0.70) Basophils # (Auto) 0.02 K/uL (0.00-0.20) Absolute Immature Granulocyte (auto 0.04 K/uL (0-1) Nucleated Red Blood Cells 0.0 % (0.0-0.19) Sodium Level 135 mmol/L (136-145) L Potassium Level 3.8 mmol/L (3.5-5.1) Chloride Level 99 mmol/L (101-111) L Carbon Dioxide Level 26 mmol/L (21-32) Blood Urea Nitrogen 6 mg/dL (7-18) L Creatinine 0.8 mg/dL (0.5-1.0) Glomerular Filtration Rate Calc 106 mL/min (>90) Random Glucose 106 mg/dL (70-105) H Lactic Acid Level 1.1 mmol/L (0.8-2.5) Total Calcium 9.6 mg/dL (8.5-10.1) Total Creatine Kinase 98 U/L (21-232) Troponin I High Sensitivity < 4 ng/L (4-50) L MDM MDM: Differential diagnosis: Fever, sepsis, URI, COVID, flu, Rationale: Tests considered and ordered secondary to shared decision making include: Previous outside records reviewed: Old ER visits. Risk of complication and/or morbidity or mortality of patient management: None Medications-Per medication reconciliation Need for hospitalization: Patient does not meet criteria for hospitalization. Need for emergency major/minor surgery: No Patient is a 25-year-old female coming in complaining with fever and chills. Along with this patient states he has been having body aches. Laboratory workup positive for urinary tract infection. Patient was hydrated with IV fluids received IV antibiotics he will be discharged in stable condition with a diagnosis of urinary tract infection. Medication will be provided for symptomatic relief. I did advised her appropriate follow up with PCP for long- term mgmt. ED Course Orders Procedure Category Date Status Time Covid Rna Naat LAB 08/13/25 Complete 15:12 Influenza Type A & B, LAB 08/13/25 Complete Rapid 15:12 Rapid (Group A Strep) LAB 08/13/25 Complete 15:12 Acetaminophen 500mg PHA 08/13/25 Complete Tab (Tylenol 500mg T 15:30 Cbc With Differential LAB 08/13/25 Complete 15:22 Blood Cult STEVIE 08/13/25 In Process 15:22 Urinalysis Profile LAB 08/13/25 Complete 15:22 Culture Urine STEVIE 08/13/25 In Process 15:22 0.9%Nacl 1000ml (Ns PHA 08/13/25 In Process 1000ml) 15:30 Creatine Kinase, Total LAB 08/13/25 Complete 15:22 Troponin I High LAB 08/13/25 Complete Sensitivity 15:22 Lactic Acid LAB 08/13/25 Complete 15:22 Basic Metabolic Panel LAB 08/13/25 Complete 15:22 Current Medications Medications (Trade) Dose Ordered Sig/Wil Route PRN Reason Start Time Stop Time Status Last Admin Dose Admin Acetaminophen (TYLenol 500MG TAB) 1,000 mg ONCE ONCE PO 08/13/25 15:30 08/13/25 15:31 DC 08/13/25 15:23 Sodium Chloride 2,286 ml @ 762 mls/hr ONCE ONCE IV 08/13/25 15:30 08/13/25 18:29 08/13/25 15:54 Vital Signs Date Time Temp Pulse Resp B/P (MAP) Pulse Ox O2 Delivery O2 Flow Rate FiO2 08/13/25 16:53 98.2 93 14 105/61 98 Room Air* 0 21 08/13/25 15:41 102.9 119 25 123/69 97 Room Air* 0 21 08/13/25 15:12 101.1 120 20 110/72 100 Room Air 0 DX & DISP Disposition: Discharge Departure Impression: Primary Impression: UTI (urinary tract infection) Condition: Stable Scripts Sulfamethoxazole/Trimethoprim (Bactrim Ds Tablet) 800 Mg-160 Mg Tablet 1 TAB PO BID for 10 Days, #20 TAB 0 Refills Prov: ISIDORO LOCKETT MD 08/13/25 Additional Instructions: FOLLOW-UP WITH PRIMARY CARE PROVIDER IN 1 TO 2 DAYS. TAKE MEDICATIONS DIRECTED HERE IN THE EMERGENCY ROOM. OKAY TO CONTINUE HOME MEDICATIONS UNLESS OTHERWISE DISCUSSED DURING YOUR VISIT IN THE EMERGENCY ROOM TODAY. RETURN TO YOUR NEAREST EMERGENCY ROOM IF SYMPTOMS WORSEN OR IF THERE IS NO IMPROVEMENT. CALL 911 IF YOU NEED IMMEDIATE ASSISTANCE. TAKE TYLENOL [id number] NEEDED AND IF NO CONTRAINDICATIONS ARE PRESENT. INCREASE ORAL HYDRATION. A WOUND CULTURE OR URINE CULTURE WAS ORDERED HERE IN THE EMERGENCY ROOM DEPARTMENT PLEASE FOLLOW-UP WITH PRIMARY CARE PROVIDER AND ADVISE THEM TO GET REPORTS FROM OUR FACILITY. IF YOU HAD ANY PELON WRAP/SPLINTS THAT WERE APPLIED HERE, PLEASE DO NOT REMOVE THEM UNTIL YOU SEE YOUR PRIMARY CARE OR SPECIALTY. Referrals: Referrals: MADELYN LONDON (PCP) Time of Disposition: 17:28 ISIDORO LOCKETT MD Aug 13, 2025 17:21
[2025-08-13 17:24] LABS: INFLUENZA TYPE A Negative For Type A (NEGATIVE); INFLUENZA TYPE B Negative For Type B (NEGATIVE)
[2025-08-13] MEDS ORDERED: SULF1TAB42 PO (17:30)
[2025-08-13 17:59] VITALS: BP 114/55; PULSE 86; RESP 19; TEMP 98.2; O2SAT 96
--- NOTE | 2025-08-13 18:45 | NUR ---
JANETTE BERNAL WAS DC'D BY DR LOCKETT, I EXPLAINED TO PATIENT TO FOLLOW UP WITH PCP, PROVIDED INFO BASED ON DIAGNOSIS, PRESCRIPTIONS AND ANSWERED ANY FOLLOW UP QUESTIONS, PATIENT AMBULATED OUT OF ED, NO COMPLICATIONS
== END 2025-08-13 18:44 | disposition home or self-care (01) ==
LOC: EDH 15:08
DX: N39.0 Urinary tract infection, site not specified (principal); J45.909 Unspecified asthma, uncomplicated; Z20.822 Contact with and (suspected) exposure to COVID-19; Z79.1 Long term (current) use of non-steroidal anti-inflammatories (NSAID); Z88.0 Allergy status to penicillin; Z98.890 Other specified postprocedural states
CPT/HCPCS: 99283; 96360; 87635; 82550; 84484; 80048; 85025; 87040 ×2; 87086; 87880; 87804 ×2; 83605; 81001; 36415; J7030